=== PATIENT | female | born 1990 | race African-American/Black ===

== ENCOUNTER 2020-01-10 15:04 | Observation (INO) | payer MEDICAID ==
[~2020-01-10] VITALS: Ht 152.4 cm; Wt 85.3 kg
[2020-01-10] MEDS ORDERED: PREN1TAB23 (15:50)
[2020-01-10 16:08] LABS: BASOPHILS % 1.1 % (0.0-2.0); EOSINOPHILS % 0.7 % (0.0-5.0); HEMATOCRIT. 36.1 % (36.0-48.0); HEMOGLOBIN. 12.5 g/dL (12.0-16.0); LYMPHOCYTES % 24.2 % (20.0-50.0); MEAN CORPUSCULAR HEMOGLOBIN 30.9 pg (28.0-32.0); MEAN CORPUSCULAR VOLUME 89.2 fL (81.0-99.0); MEAN PLATELET VOLUME 9.6 fl (7.4-10.4); MONOCYTES % 7.5 % (2.0-8.0); NEUTROPHILS % 66.5 % (40.0-76.0); PLATELET 232 x1000/uL (130-400); RED BLOOD CELL COUNT 4.05 mill/uL (4.2-5.4); RED CELL DISTRIBUTION WIDTH 13.4 % (11.6-14.6)
[2020-01-10 16:10] LABS: CLARITY URINE CLEAR (CLEAR); COLOR URINE YELLOW (YELLOW); KETONES URINE TRACE (NEGATIVE); LEUKOCYTE ESTERASE URINE NEGATIVE (NEGATIVE); NITRITE URINE NEGATIVE (NEGATIVE); OCCULT BLOOD URINE NEGATIVE (NEGATIVE); PROTEIN URINE TRACE (NEGATIVE); SPECIFIC GRAVITY URINE 1.018 (1.005-1.030); UROBILINOGEN URINE 0.2 E.U./dL (0.2-1.0)
[2020-01-10 16:20] LABS: CHLORIDE 106 mEq/L (98-107)
[2020-01-10 16:24] LABS: D-DIMER 3.73 mg/L FEU (<0.50); INR 0.9; PARTIAL THROMBOPLASTIN TIME 26.8 sec (23.4-31.0); PROTHROMBIN TIME 9.8 sec (9.6-11.0)
== END 2020-01-10 17:00 | disposition home or self-care (01) ==
LOC: 8 EST LDRP 15:04
PROVIDERS: ADMIT Obstetrics & Gynecology; ATTEND Obstetrics & Gynecology
DX: O26.893 Other specified pregnancy related conditions, third trimester (principal); R03.0 Elevated blood-pressure reading, without diagnosis of hypertension; Z3A.37 37 weeks gestation of pregnancy; Z79.899 Other long term (current) drug therapy
CPT/HCPCS: 36415; 80053; 81003; 84550; 85025; 85379; 85384; 85610; 85730; 99281; G0378

== ENCOUNTER 2020-01-23 09:36 | Inpatient (IN) | payer MEDICAID ==
[~2020-01-23] VITALS: Ht 159.5 cm; Wt 86.2 kg
[~2020-01-23 09:36] MED LIST: PREN1TAB23
[2020-01-23] MEDS ORDERED: BUTORPHANOL TARTRATE 2 MG/ML VIAL IV PRN (10:15)
[2020-01-23] MEDS ORDERED: NALOXONE HCL 0.4 MG/ML 1ML VIAL IM PRN (10:15)
[2020-01-23] MEDS ORDERED: METHYLERGONOVINE MALEATE 0.2 MG/ML IM PRN ×2 (10:15→23:30)
[2020-01-23] MEDS ORDERED: CARBOPROST TROMETHAMINE 250 MCG/ML AMPUL IM PRN (10:15)
[2020-01-23] MEDS ORDERED: MISOPROSTOL 100MCG TABLET VG SCH (10:15)
[2020-01-23] MEDS ORDERED: LIDOCAINE HCL 1% 20ML VIAL (Pyxis) INJ INFIL SCH (10:15)
[2020-01-23 10:57] LABS: BASOPHILS % 0.7 % (0.0-2.0); EOSINOPHILS % 1.7 % (0.0-5.0); HEMOGLOBIN. 12.6 g/dL (12.0-16.0); LYMPHOCYTES % 29.3 % (20.0-50.0); MEAN CORPUSCULAR HEMOGLOBIN 30.9 pg (28.0-32.0); MEAN CORPUSCULAR VOLUME 88.4 fL (81.0-99.0); MONOCYTES % 8.5 % (2.0-8.0); NEUTROPHILS % 59.8 % (40.0-76.0); PLATELET 212 x1000/uL (130-400); RED BLOOD CELL COUNT 4.07 mill/uL (4.2-5.4); RED CELL DISTRIBUTION WIDTH 13.3 % (11.6-14.6)
[2020-01-23 11:22] LABS: INR 0.9; PARTIAL THROMBOPLASTIN TIME 29.3 sec (23.4-31.0); PROTHROMBIN TIME 9.6 sec (9.6-11.0)
[2020-01-23 11:45] LABS: HEPATITIS B SURFACE ANTIGEN NEGATIVE
[2020-01-23] MEDS ORDERED: MISOPROSTOL 100MCG TABLET VG PRN (11:45)
[2020-01-23 12:04] LABS: CLARITY URINE CLEAR (CLEAR); COLOR URINE YELLOW (YELLOW); KETONES URINE NEGATIVE (NEGATIVE); LEUKOCYTE ESTERASE URINE NEGATIVE (NEGATIVE); NITRITE URINE NEGATIVE (NEGATIVE); OCCULT BLOOD URINE NEGATIVE (NEGATIVE); PH URINE 6.5 (4.5-8.0); PROTEIN URINE TRACE (NEGATIVE); SPECIFIC GRAVITY URINE 1.016 (1.005-1.030); UROBILINOGEN URINE 0.2 E.U./dL (0.2-1.0)
[2020-01-23] MEDS: LACTATED RINGERS 1,000 ML IV SCH ×2 (12:14→15:41)
[2020-01-23 12:16] LABS: *AMPHETAMINES SCREEN URINE NEGATIVE (NEGATIVE); *BARBITURATES SCREEN URINE NEGATIVE (NEGATIVE); *BENZODIAZEPINES SCREEN URINE NEGATIVE (NEGATIVE); *COCAINE SCREEN URINE NEGATIVE (NEGATIVE); METHADONE URINE SCREEN NEGATIVE (NEGATIVE)
[2020-01-23 12:18] LABS: CANNABINOID URINE SCREEN NEGATIVE (NEGATIVE); OPIATES URINE SCREEN NEGATIVE (NEGATIVE); PHENCYCLIDINE URINE SCREEN NEGATIVE (NEGATIVE)
[2020-01-23] MEDS: DEXT 5%/LR + PITOCIN 20UNITS/L 1,000 ML IV SCH ×2 (22:32→23:21)
[2020-01-23] MEDS ORDERED: BISACODYL 10MG SUPP PR PRN (23:30)
[2020-01-23] MEDS ORDERED: BENZOCAINE/LANOLIN/ALOE VERA SPRAY TOP PRN (23:30)
[2020-01-23] MEDS ORDERED: ACETAMINOPHEN WITH CODEINE 300/30MG TABLET PO PRN (23:30)
[2020-01-23] MEDS ORDERED: GLYCERIN/WITCH HAZEL LEAF MEDICATED PAD TOP PRN (23:30)
[2020-01-23] MEDS ORDERED: DIPHENHYDRAMINE 25MG CAPSULE PO PRN (23:30)
[2020-01-23] MEDS ORDERED: MINERAL OIL 30ML BOTTLE TOP PRN (23:30)
[2020-01-23] MEDS ORDERED: IBUPROFEN 400MG TABLET PO PRN (23:30)
[2020-01-23] MEDS ORDERED: LANOLIN OINT 7GM TUBE TOP PRN (23:30)
[2020-01-23] MEDS ORDERED: HEMORRHOIDAL SUPP PR PRN (23:30)
[2020-01-24 00:30] VITALS: BP 126/52
[2020-01-24] MEDS: IBUPROFEN 800MG TABLET PO PRN (01:00)
[2020-01-24 04:00] VITALS: BP 120/60
[2020-01-24 06:53] LABS: BASOPHILS % 0.8 % (0.0-2.0); EOSINOPHILS % 0.3 % (0.0-5.0); HEMOGLOBIN. 11.6 g/dL (12.0-16.0); LYMPHOCYTES % 18.3 % (20.0-50.0); MEAN CORPUSCULAR HEMOGLOBIN 30.6 pg (28.0-32.0); MEAN CORPUSCULAR VOLUME 89.5 fL (81.0-99.0); MEAN PLATELET VOLUME 10.1 fl (7.4-10.4); MONOCYTES % 7.4 % (2.0-8.0); NEUTROPHILS % 73.2 % (40.0-76.0); PLATELET 195 x1000/uL (130-400); RED CELL DISTRIBUTION WIDTH 13.4 % (11.6-14.6)
[2020-01-24 08:20] VITALS: BP 127/83
[2020-01-24] MEDS: PRENATAL VIT/FE FUMARATE/FA TABLET PO SCH (08:47)
[2020-01-24] MEDS: SIMETHICONE 80MG TABLET CHEW PO SCH ×4 (08:48→21:12)
[2020-01-24] MEDS: FERROUS SULFATE 325MG TABLET PO SCH ×3 (08:48→17:55)
[2020-01-24 11:30] VITALS: BP 108/68
[2020-01-24 14:45] VITALS: BP 129/69
[2020-01-24 19:30] VITALS: BP 122/66
[2020-01-24] MEDS ORDERED: DOCUSATE SODIUM 100MG CAPSULE PO SCH (21:00)
[2020-01-25 04:00] VITALS: BP 116/64
[2020-01-25 07:32] VITALS: BP 125/50
[2020-01-25] MEDS: SIMETHICONE 80MG TABLET CHEW PO SCH (08:47)
[2020-01-25] MEDS: PRENATAL VIT/FE FUMARATE/FA TABLET PO SCH (08:50)
[2020-01-25] MEDS: FERROUS SULFATE 325MG TABLET PO SCH (08:50)
[2020-01-25] MEDS: IBUPROFEN 800MG TABLET PO PRN (10:16)
== END 2020-01-25 11:10 | disposition home or self-care (01) | DRG 560 ==
LOC: OBSVTOIN 09:36 → 8 EST LDRP 09:36 → 8EST 01-24 04:32
PROVIDERS: ADMIT Obstetrics & Gynecology; ATTEND Obstetrics & Gynecology
PROC: 10E0XZZ Delivery of Products of Conception, External Approach (ICD-10-PCS; principal; 2020-01-23)
PROC: 0KQM0ZZ Repair Perineum Muscle, Open Approach (ICD-10-PCS; 2020-01-23)
DX: O69.81X0 Labor and delivery complicated by cord around neck, without compression, not applicable or unspecified (principal); O70.1 Second degree perineal laceration during delivery; Z3A.39 39 weeks gestation of pregnancy; Z37.0 Single live birth
CPT/HCPCS: 36415; 80305; 81003; 85025; 86592; 86703; 86762; 86850; 86900; 87340; J0595; J2590; J3490; J7120